=== PATIENT | female | born 1995 ===

== ENCOUNTER → 2017-04-19 13:54 | Outpatient (CLI) | payer OTHER | END | disposition home or self-care (01) | LOC: NUTRICION 13:54 → PPHC 14:00 | DX: R63.6 Underweight (principal) ==

== ENCOUNTER 2018-09-06 07:51 | Outpatient (CLI) | payer OTHER | END 2018-09-06 08:01 | disposition home or self-care (01) | LOC: SONOGRAMA 07:51 | DX: N91.1 Secondary amenorrhea (principal) ==